=== PATIENT | male | born 1960 | race Caucasian/White ===

== ENCOUNTER 2019-06-07 23:34 | Observation (INO) | payer BC ==
--- NOTE | 2019-06-07 23:59 | ED ---
Chest Pain HPI - General Chief Complaint: Chest Pain Stated Complaint: Chest Pain Time Seen by Provider: 06/07/19 23:36 Source: patient, EMS Mode of arrival: EMS Limitations: no limitations - History of Present Illness Initial Comments: Patient is a 59-year-old male with history of diabetes presenting to the emergency department with a chief complaint of chest pain. Patient reports he was at work talking to another person when he developed sudden onset of left- sided chest pain that was squeezing in nature. Patient reports a sensation also went into the left shoulder upper arm and neck. He states there was also some numbness and tingling that radiated to the left upper extremity. Patient denies any episodes diaphoresis, nausea or vomiting. Patient denies previous cardiac history of has never had a heart evaluation. Patient reports hypertension and hypercholesterolemia which has not been treated for over a year. Patient also reports a diabetes has not been controlled for over a year. Patient reports a strong family history of early cardiac related . Currently patient reports the pain is a 1 and does not have any symptoms of numbness and tingling. Patient denies any shortness of breath or dyspnea on exertion. - Related Data Home Medications Medication Instructions Recorded Confirmed No Known Home Medications 06/07/19 06/07/19 Allergies Allergy/AdvReac Type Severity Reaction Status Date / Time No Known Allergies Allergy Verified 06/07/19 23:41 Review of Systems ROS Statement: Those systems with pertinent positive or pertinent negative responses have been documented in the HPI. ROS Other: All systems not noted in ROS Statement are negative. EKG Findings - EKG Comments: EKG Findings:: Sinus arrhythmia. Ventricular rate 85, MN interval 174, QRS duration 106, QT/QTc 376/447. Past Medical History Past Medical History: Diabetes Mellitus, Hyperlipidemia, Hypertension History of Any Multi-Drug Resistant Organisms: None Reported Past Surgical History: No Surgical Hx Reported Past Psychological History: No Psychological Hx Reported Smoking Status: Never smoker Past Alcohol Use History: Rare Past Drug Use History: None Reported General Exam Limitations: no limitations General appearance: alert, in no apparent distress, obese Head exam: Present: atraumatic, normocephalic, normal inspection Eye exam: Present: normal appearance Pupils: Present: normal accommodation ENT exam: Present: normal exam, normal oropharynx, mucous membranes moist Neck exam: Present: normal inspection, full ROM Respiratory exam: Present: normal lung sounds bilaterally. Absent: respiratory distress, wheezes, rales, chest wall tenderness Cardiovascular Exam: Present: regular rate, normal rhythm, normal heart sounds GI/Abdominal exam: Present: soft, normal bowel sounds. 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 Patient is presenting with typical chest pain and atypical features. No left-sided versus right sided weakness. Patient was given aspirin and nitro in the ambulance. At this time patient is completely asymptomatic. Patient isn't taking his diabetic, hypertensive or statins for over a year. On initial evaluation patient had elevated blood pressure which is gradually decreased. Chest x-ray is unremarkable. Initial troponin is negative. CBC and CMP unremarkable. EKG showing sinus arrhythmia with no ST changes. Patient has a heart score of 5. Patient will be admitted for observation. Case discussed with physician. Admitting physician is Dr. Fernandez. Cardiology consulted. Disposition Clinical Impression: Chest pain Disposition: ADMITTED IP TO THIS HOSP Condition: Stable Instructions (If sedation given, give patient instructions): Chest Pain (ED) Additional Instructions: Patient will be admitted Is patient prescribed a controlled substance at d/c from ED?: No Referrals: Mor Milan MD [Primary Care Provider] - 1-2 days Time of Disposition: 01:29
--- NOTE | 2019-06-08 00:18 | XR ---
EXAMINATION TYPE: XR chest 2V DATE OF EXAM: 06/08/2019 COMPARISON: NONE HISTORY: Chest pain TECHNIQUE: Frontal and lateral views of the chest are obtained. FINDINGS: Heart and mediastinum are normal. Lungs are clear. Diaphragm is normal. Bony thorax appear s normal. There are chest leads. IMPRESSION: Normal chest.
[2019-06-08 00:20] LABS: Basophils % (A) 0 %; Eosinophils # (A) 0.1 k/uL (0-0.7); Eosinophils % (A) 2 %; HCT 42.8 % (39.0-53.0); HGB 14.8 gm/dL (13.0-17.5); Lymphocytes # (A) 1.5 k/uL (1.0-4.8); Lymphocytes % (A) 20 %; MCHC 34.5 g/dL (31.0-37.0); MCV 84.1 fL (80.0-100.0); Mean Platelet Volume 5.9; Monocytes # (A) 0.4 k/uL (0-1.0); Monocytes % (A) 6 %; Neutrophils # (A) 5.1 k/uL (1.3-7.7); Neutrophils % (A) 70 %; Platelet Count 238 k/uL (150-450); RBC 5.09 m/uL (4.30-5.90); RDW 13.4 % (11.5-15.5); WBC 7.4 k/uL (3.8-10.6)
[2019-06-08 00:24] LABS: ALT 53 U/L (21-72); AST 41 U/L (17-59); African American GFR (CKD) >90 (>60 ml/min/1.73 sqM); Albumin 4.3 g/dL (3.5-5.0); Alkaline Phosphatase 62 U/L (38-126); Anion Gap 11 mmol/L; Blood Urea Nitrogen 19 mg/dL (9-20); Calcium 9.1 mg/dL (8.4-10.2); Carbon Dioxide 24 mmol/L (22-30); Chloride 106 mmol/L (98-107); Glucose 141 mg/dL (74-99); Non-African American GFR(CKD) >90 (>60 ml/min/1.73 sqM); Sodium 141 mmol/L (137-145); Total Bilirubin 0.7 mg/dL (0.2-1.3); Total Protein 7.3 g/dL (6.3-8.2)
[2019-06-08 00:28] LABS: Partial Thromboplastin Time 25.9 sec (22.0-30.0); Prothrombin Time 10.4 sec (9.0-12.0)
[2019-06-08] MEDS ORDERED: NITROGLYCERIN SL TABS 0.4 MG TAB SUBLINGUAL PRN (01:41)
[2019-06-08 06:44] LABS: Glucose,Whole Blood 89 mg/dL (75-99)
[2019-06-08] MEDS: INSULIN ASPART (NovoLOG) 100 UNIT/ML VIAL SQ SCH ×3 (08:04→20:05)
[2019-06-08] MEDS ORDERED: SODIUM CHLORIDE 0.9% 1,000 ML in EMPTY BAG 1 BAG IV ONE (08:36)
[2019-06-08] MEDS ORDERED: ALPRAZolam 0.5 MG TAB PO PRN (08:36)
[2019-06-08] MEDS ORDERED: ALPRAZolam 0.25 MG TAB PO PRN (08:36)
[2019-06-08] MEDS ORDERED: ENOXAPARIN 60 MG/0.6 ML SYRINGE SQ STA (08:37)
[2019-06-08] MEDS ORDERED: ASPIRIN 325 MG TAB PO STA (08:37)
[2019-06-08] MEDS: LOSARTAN 50 MG TAB PO SCH (08:44)
[2019-06-08] MEDS: METOPROLOL TARTRATE 25 MG TAB PO SCH ×2 (08:44→20:04)
[2019-06-08] MEDS: ASPIRIN 81 MG PO SCH (08:45)
[2019-06-08] MEDS ORDERED: ATORVASTATIN 40 MG TAB PO SCH (09:00)
[2019-06-08 09:02] LABS: Cholesterol 232 mg/dL (<200); HDL Cholesterol 40 mg/dL (40-60); LDL Cholesterol,Calculated 164 mg/dL (0-99); Triglycerides 138 mg/dL (<150)
--- NOTE | 2019-06-08 09:22 | P.CRDCN ---
History of Present Illness History of present illness: HISTORY OF PRESENTING ILLNESS This is a pleasant 59-year-old male past medical history significant for hypertension, dyslipidemia, diabetes mellitus and family history of premature coronary artery disease. However, he has not been compliant with his medications for the previous 1-yr. Currently takes no daily medications. He presented with chest pain. 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 We have been asked to see him in consultation for chest pain. He states yesterday while at work talking to a co-worker he had a sudden onset of chest pressure on the left side with radiation into the left shoulder, the base of the neck and down the left arm. He had no associated symptoms of shortness of breath, dizziness, nausea, vomiting, palpitations or diaphoresis but his co- worker did tell him he looked quite pale. The symptoms lasted for about 5 shanique lloyd and were not improving. EMS was called and by the time they arrived his pain had subsided. He has had no further symptoms of chest pain since admission. Seen and examined resting comfortably in no acute distress. He has never had a stress test or echocardiogram in the past. DIAGNOSTICS EKG reveals sinus mechanism with inferior Q-waves. Chest xray negative for an acute cardiopulmonary process. Laboratory reviewed, CBC unremarkable, sodium 141, potassium 4, creatinine 0.77, magnesium 2.0, cardiac enzymes negative 2, LDL 164, HDL 40 and total cholesterol 232. REVIEW OF SYSTEMS At the time of my exam: CONSTITUTIONAL: Denies fever or chills. CARDIOVASCULAR: Denies chest pain, shortness of breath, orthopnea, PND or palpitations. RESPIRATORY: Denies cough. GASTROINTESTINAL: Denies abdominal pain, diarrhea, constipation, nausea or vomiting. MUSCULOSKELETAL: Denies myalgias. NEUROLOGIC: Denies numbness, tingling or weakness. ENDOCRINE: Denies fatigue, weight change, polydipsia or polyurina. GENITOURINARY: Denies burning, hematuria or urgency with micturation. HEMATOLOGIC: Denies history of anemia or bleeding. PHYSICAL EXAMINATION Blood pressure 181/99 heart rate 66 afebrile and maintaining oxygen saturaiton on room air. CONSTITUTIONAL: No apparent distress. Obese. HEENT: Head is normocephalic. Pupils are equal, round. Sclerae anicteric. Mucous membranes of the mouth are moist. No JVD. No carotid bruit. CHEST EXAMINATION: Lungs are clear to auscultation. No chest wall tenderness is noted on palpation or with deep breathing. HEART EXAMINATION: Regular rate and rhythm. S1, S2 heard. No murmurs, gallops or rub. ABDOMEN: Soft, nontender. Positive bowel sounds. EXTREMITIES: 2+ peripheral pulses, no lower extremity edema and no calf tenderness. NEUROLOGIC EXAMINATION: Patient is awake, alert and oriented x3. ASSESSMENT Unstable angina Hypertensive urgency Diabetes mellitus Dyslipidemia Obesity, BMI 33 PLAN An acute event has been ruled out, however symptoms are quite concerning. Given his history and non-compliance we recommend proceeding with cardiac catheteri zation for definitive diagnosis. I have discussed the risks, benefits and alternative therapies for the above-mentioned procedure and for both sedation/analgesia as well as necessary blood product administration, if indicated, as they pertain to this patient. The patient has indicated understanding and acceptance of the risks and procedures discussed. Questions have been answered appropriately and he is agreeable to move forward with the above stated procedure. Initiate on atorvastatin, lopressor and losartan. Obtain 2D echocardiogram and doppler study to assess cardiac structure and function. Give one dose of lovenox 60 mg now. Request certified lactation educator to see him while he is here in the hospital and check hgb A1C. Further recommendations to follow based on clinical course. Thank you kindly for this consultation. Nurse Practitioner note has been reviewed, I agree with a documented findings and plan of care. Patient was seen and examined. Past Medical History Past Medical History: Diabetes Mellitus, Hyperlipidemia, Hypertension History of Any Multi-Drug Resistant Organisms: None Reported Past Surgical History: No Surgical Hx Reported Past Psychological History: No Psychological Hx Reported Smoking Status: Never smoker Past Alcohol Use History: Rare Past Drug Use History: None Reported Medications and Allergies Home Medications Medication Instructions Recorded Confirmed Type No Known Home Medications 06/07/19 06/08/19 History Allergies Allergy/AdvReac Type Severity Reaction Status Date / Time No Known Allergies Allergy Verified 06/08/19 07:48 Physical Exam Vitals: Vital Signs Temp Pulse Pulse Pulse Resp BP BP 06/08/19 07:59 06/08/19 07:08 98.2 F 66 18 181/99 06/08/19 02:45 71 16 164/91 06/08/19 02:39 98.2 F 82 18 190/119 06/08/19 02:25 76 16 06/08/19 02:00 77 19 159/97 06/08/19 01:00 73 20 160/101 06/08/19 00:09 71 06/08/19 00:00 77 13 167/104 06/07/19 23:36 98.9 F 87 18 195/118 Pulse Ox 06/08/19 07:59 96 06/08/19 07:08 95 06/08/19 02:45 06/08/19 02:39 97 06/08/19 02:25 06/08/19 02:00 94 L 06/08/19 01:00 94 L 06/08/19 00:09 06/08/19 00:00 96 06/07/19 23:36 96 Intake and Output 06/07/19 06/08/19 06/08/19 22:59 06:59 14:59 Intake Total 20 Balance 20 Intake: Amount of Fluid Infused ( 20 ml) Other: # Voids 1 Weight 108.862 kg Results 06/08/19 00:00 06/07/19 23:55 Cardiac Enzymes 06/07/19 06/07/19 06/08/19 Range/Units 23:55 23:55 05:37 AST 41 (17-59) U/L Troponin I <0.012 <0.012 (0.000-0.034) ng/mL Coagulation 06/07/19 Range/Units 23:55 PT 10.4 (9.0-12.0) sec APTT 25.9 (22.0-30.0) sec CBC 06/08/19 Range/Units 00:00 WBC 7.4 (3.8-10.6) k/uL RBC 5.09 (4.30-5.90) m/uL Hgb 14.8 (13.0-17.5) gm/dL Hct 42.8 (39.0-53.0) % Plt Count 238 (150-450) k/uL Comprehensive Metabolic Panel 06/07/19 Range/Units 23:55 Sodium 141 (137-145) mmol/L Potassium 4.0 (3.5-5.1) mmol/L Chloride 106 (98-107) mmol/L Carbon Dioxide 24 (22-30) mmol/L BUN 19 (9-20) mg/dL Creatinine 0.77 (0.66-1.25) mg/dL Glucose 141 H (74-99) mg/dL Calcium 9.1 (8.4-10.2) mg/dL AST 41 (17-59) U/L ALT 53 (21-72) U/L Alkaline Phosphatase 62 (38-126) U/L Total Protein 7.3 (6.3-8.2) g/dL Albumin 4.3 (3.5-5.0) g/dL Current Medications Generic Name Dose Route Start Last Admin Trade Name Freq PRN Reason Stop Dose Admin Aspirin 325 mg 06/09/19 09:00 Aspirin PO DAILY [facility] Insulin Aspart 0 unit 06/08/19 07:30 06/08/19 08:04 Novolog SQ Not Given ACHS [facility] Protocol Nitroglycerin 0.4 mg 06/08/19 01:41 Nitrostat SUBLINGUAL Q5M PRN Chest Pain Intake and Output 06/07/19 06/08/19 06/08/19 22:59 06:59 14:59 Intake Total 20 Balance 20 Intake: Amount of Fluid Infused ( 20 ml) Other: # Voids 1 Weight 108.862 kg 06/08/19 00:00 06/07/19 23:55
[2019-06-08] MEDS ORDERED: VERAPAMIL 2.5 MG/ML 2 ML AMP ONE (09:26)
[2019-06-08] MEDS ORDERED: LIDOCAINE 1% INJ 10MG/ML (20 ML MDV) ONE (09:26)
[2019-06-08] MEDS ORDERED: NITROGLYCERIN SL TABS 0.4 MG TAB SUBLINGUAL ONE ×2 (09:44→09:46)
[2019-06-08] MEDS ORDERED: IV FLUID CONTINUATION 1,000 ML IV ONE (09:45)
[2019-06-08] MEDS: MIDAZOLAM 2 MG/2 ML VIAL IV ONE ×2 (09:46→09:56)
[2019-06-08] MEDS ORDERED: LIDOCAINE 1% INJ 10MG/ML (20 ML MDV) SQ ONE (09:50)
[2019-06-08] MEDS: VERAPAMIL SYRINGE (5 MG/10 ML) INTRAARTER ONE ×2 (09:53→11:07)
[2019-06-08] MEDS: HEPARIN SODIUM 1,000 UN/ML (10ML VL) IV ONE ×3 (09:55→10:30)
[2019-06-08] MEDS ORDERED: HEPARIN SODIUM 1,000 UN/ML (10ML VL) ONE (10:01)
[2019-06-08] MEDS ORDERED: IOPAMIDOL-370 100ML BTL INJ ONE ×3 (10:03→11:04)
[2019-06-08] MEDS ORDERED: ADENOSINE 90 MG in SODIUM CHLORIDE 0.9% 60 ML IVP ONE (10:20)
[2019-06-08] MEDS ORDERED: TICAGRELOR 90 MG TAB ONE (10:23)
[2019-06-08] MEDS ORDERED: TICAGRELOR 90 MG TAB PO ONE (10:31)
[2019-06-08] MEDS: HYDROmorphone 1 MG/ML 1 ML SYRINGE IVP ONE ×2 (10:59→11:06)
[2019-06-08] MEDS ORDERED: NITROGLYCERIN 1000MCG/10ML SYRINGE INTRACORON ONE (11:01)
--- NOTE | 2019-06-08 12:00 | ECHOF ---
Referral Reason: MEASUREMENTS -------- HEIGHT: 180.3 cm WEIGHT: 108.9 kg BP: IVSd: 1.2 cm (0.6 - 1.1) LVIDd: 3.8 cm (3.9 - 5.3) LVPWd: 1.1 cm (0.6 - 1.1) IVSs: 1.6 cm LVIDs: 2.9 cm LVPWs: 1.8 cm LAESV Index (A-L): 22.24 ml/m Ao Diam: 3.1 cm (2.0 - 3.7) AV Cusp: 2.1 cm (1.5 - 2.6) LA Diam: 3.1 cm (2.7 - 3.8) MV EXCURSION: 14.924 mm (> 18.000) MV EF SLOPE: 46 mm/s (70 - 150) EPSS: 1.3 cm MV E Willie: 0.59 m/s MV DecT: 186 ms MV A Willie: 0.95 m/s MV E/A Ratio: 0.62 AR PHT: 523 ms RAP: 5.00 mmHg RVSP: 32.40 mmHg FINDINGS -------- Sinus rhythm. This was a technically difficult study with suboptimal views. The left ventricular size is normal. There is mild concentric left ventricular hypertrophy. Overa ll left ventricular systolic function is mildly impaired with, an EF between 45 - 50 %. Normal LAP Grade 1 Diastolic Dysfunction. Basal inferior LV wall motion is hypokinetic. Basal inferoseptal LV wall motion is hypokinetic. Mid inferior LV wall motion is hypokinetic. Mid inferoseptal LV wall motion is hypokinetic. The right ventricle is normal in size. The left atrial size is normal. Normal LA size by volume 22+/-6 ml/m2. The right atrial size is normal. Lumason used Interatrial and interventricular septum intact. The aortic valve is trileaflet and appears structurally normal. The mitral valve is normal. There is trace mitral regurgitation. The tricuspid valve appears structurally normal. Trace tricuspid regurgitation present. Right darin tricular systolic pressure is normal at < 35 mmHg. There is no pulmonic regurgitation present. The aortic root size is normal. IVC Not well visulized. There is no pericardial effusion. CONCLUSIONS -------- 1. Sinus rhythm. 2. This was a technically difficult study with suboptimal views. 3. The left ventricular size is normal. 4. There is mild concentric left ventricular hypertrophy. 5. Overall left ventricular systolic function is mildly impaired with, an EF between 45 - 50 %. 6. Normal LAP Grade 1 Diastolic Dysfunction. 7. Basal inferior LV wall motion is hypokinetic. 8. Basal inferoseptal LV wall motion is hypokinetic. 9. Mid inferior LV wall motion is hypokinetic. 10. Mid inferoseptal LV wall motion is hypokinetic. 11. The right ventricle is normal in size. 12. The left atrial size is normal. 13. Normal LA size by volume 22+/-6 ml/m2. 14. The right atrial size is normal. 15. Lumason used 16. Interatrial and interventricular septum intact. 17. The aortic valve is trileaflet and appears structurally normal. 18. The mitral valve is normal. 19. There is trace mitral regurgitation. 20. The tricuspid valve appears structurally normal. 21. Trace tricuspid regurgitation present. 22. Right ventricular systolic pressure is normal at < 35 mmHg. 23. There is no pulmonic regurgitation present. 24. The aortic root size is normal. 25. IVC Not well visulized. 26. There is no pericardial effusion. EDGE BANDING OFF BEARER: Priti Lozoya RDCS
[2019-06-08] MEDS: SODIUM CHLORIDE 0.9% 1,000 ML IV SCH (12:12)
[2019-06-08 12:23] LABS: Glucose,Whole Blood 127 mg/dL (75-99)
--- NOTE | 2019-06-08 13:10 | CC ---
CARDIAC CATHETERIZATION REPORT DATE OF SERVICE: 06/08/2019 PROCEDURE: 1. Left heart catheterization and coronary angiography. 2. Fractional flow reserve assessment of RCA and PDA branch of RCA. 3. PTCA and stenting of the PDA branch of RCA and mid RCA with 3 drug-eluting stents. PERFORMED BY: Dr. Manjinder Ortega. Moderate conscious sedation time was 81 minute. Patient was administered Versed. His oxygen saturation, hemodynamics, and EKG were monitored closely. He was also administered Dilaudid. CLINICAL INFORMATION: Mr. Armando Hawthorne is a patient who sees Dr. Milan from a primary care standpoint, but has not seen him for the last couple of years. He was told he had diabetes and hypertension, but he has not taken any medications. He was at work and developed chest pain yesterday, came to the hospital. Features of chest pain were suggestive angina, but troponins were negative. EKG revealed nonspecific ST and T-wave changes. Echocardiogram revealed inferior wall, inferoseptal and inferobasal hypokinesia with ejection fraction of nearly 45% to 50%. He was advised coronary angiography after due discussion. Risks, benefits, options were explained. PROCEDURE NOTE: Under local anesthesia and strict aseptic precautions, a 6-Yakut introducer was placed in the right radial artery. Using a JL3.5 and JR4 catheters, I performed coronary angiography and used the same right catheter to check the LV pressure but LV gram was not performed. I noted there was a moderate lesion in the mid RCA and also a significant lesion in the PDA branch of RCA. The left system was free of significant disease. Patient had somewhat of a codominant system, but the PDA branch came off from the RCA. Circumflex did not have significant disease. LAD distally had diffuse disease. He was advised FFR and PCI that was performed in the same setting. Following the completion of the procedure, a TR band was applied. Saturation in the fingers of the right hand was 92%. Good hemostasis was secured. CARDIAC CATHETERIZATION FINDINGS: The left ventricular end-diastolic pressure was about 8 to 10 mmHg without any gradient across aortic valve. CORONARY ANGIOGRAPHY FINDINGS: RIGHT CORONARY ARTERY: Technically a dominant vessel which has multiple areas of irregularities. The proximal portion of the RCA is free of significant disease. The midportion has an eccentric 55% to 60% lesion beyond which there are multiple areas of mild narrowing and then the PDA which comes off from this vessel has a focal area of about 70% stenosis. The PLV is a smaller branch. The RCA therefore has a moderate 55% mid lesion and a 70% PDA lesion. LEFT MAIN CORONARY ARTERY: Short patent disease-free vessel that bifurcates into LAD and circumflex. LEFT ANTERIOR DESCENDING CORONARY ARTERY: Fair caliber vessel, gives off septal and diagonal branches runs all the way to the apex and the distal fourth of this LAD is diffusely diseased and has a very small caliber and that runs towards the apex. The diagonal and septal branches are free of significant disease. LEFT POSTERIOR CIRCUMFLEX CORONARY ARTERY: Technically a codominant vessel, gives off obtuse marginal branches and distal posterolateral branch. There are minor irregularities but no significant disease is noted. FINAL IMPRESSION: This patient has a 55% to 60% mid RCA lesion and a 70% PDA lesion and PDA branch comes of the RCA. The LAD diffuse disease is noted distally. Circumflex is free of significant disease. Filling pressures are acceptable. No gradient across aortic valve. RECOMMENDATIONS: I recommended FFR and intervention of the RCA if positive and proceeded to perform this in the same setting. INTERVENTION PROCEDURE DETAILS: I used a standard right Gregor guide catheter and a Verrata wire, with this wire I obtained the IFR and FFR with adenosine infusion. FFR was 0.69 and IFR was 0.89. This was abnormal. Therefore I proceeded to perform intervention. Using the same Verrata wire, I advanced a 2.0 caliber [place] stent and deployed this in the PDA branch. I gave additional heparin and patient received a total of 7500 of heparin and ACT was over 400. A repeat ACT was 368. He also received Brilinta 180 mg orally. The Verrata wire was kept distally. With the same wire I advanced an [place] balloon of 8 mm length and 2.0 caliber and deployed this at 14 atmospheres. I noted that there was some amount of incomplete expansion of the stent. I debated between using a 2.5 caliber 8 mm NC Trek or deploying another stent slightly proximal to it as well. I therefore took a 2.5 caliber 8 mm stent and this stent was deployed at 14 atmospheres with excellent expansion and excellent angiographic result. So in the PDA branch, he has 2 stents and there is a significant overlap of the stents with a small area of proximal extension. However, my initial intention was to use an NC Trek balloon to post dilate, but I ended up doing a stent for this lesion. I explained this to the patient. Excellent angiographic result was achieved. I then turned my attention to the proximal lesion. Using the same balloon I dilated the proximal lesion as a predilatation and then I had difficulty with the Verrata wire and I could not advance the 3.25 caliber stent over the wire. Therefore I took this wire out and used a new run-through wire. Over the run-through wire I advanced a 3.25 caliber 12 mm long Xience stent and deployed this at 12 atmospheres. The stent did not expand. In fact, there was possibly a balloon rupture of the stent spontaneously must have been a manufacturing defect and the stent remained under expand. The patient had chest pain and ST elevation both in the inferior as well as in the precordial leads. I immediately took the stent balloon out and advanced a 3.25 caliber 12 mm NC Trek balloon and positioned it exactly within the stent and expanded this up to 13 atmospheres. Patient had chest pain and EKG changes persisted, but eventually excellent angiographic result was achieved and there was complete resolution of chest pain and EKG changes. The stent was fully expanded. I obtained multiple angiograms in various projections. The patient had complete relief of his symptoms and total resolution of ST-segment changes. The ACT was then rechecked and it was about 368. Patient also received 180 mg of Brilinta. Excellent angiographic result was achieved with the 2 stents in the PDA and 1 stent in the RCA branch. The sheath was then taken out and TR band applied as per protocol with saturation of more than 92% in the fingers of the right hand. Results were discussed with the patient. Images were reviewed with the patient, but there was no family members available. This note will go to Dr. Milan patient's primary care physician. Excellent angiographic result without complication was achieved. Patient will be on dual antiplatelet therapy, statins, angiotensin receptor blockers and beta blockers. Medication compliance was advised. MMODL / IJN: [id number] /
[2019-06-08 15:22] VITALS: RESP 16
[2019-06-08 16:57] LABS: Glucose,Whole Blood 84 mg/dL (75-99)
[2019-06-08 18:57] LABS: Hemoglobin A1C 6.1 % (4.0-6.0)
[2019-06-08 20:00] LABS: Glucose,Whole Blood 121 mg/dL (75-99)
[2019-06-08] MEDS: TICAGRELOR 90 MG TAB PO SCH (20:04)
--- NOTE | 2019-06-08 20:54 | P.HPIM ---
History of Present Illness H&P Date: 06/08/19 Chief Complaint: Chest pain History of presenting complaint: This is a very pleasant 59-year-old patient of Dr. Milan. Chronic stable medical conditions include diabetes, hypertension, hyperlipidemia. Yesterday afternoon patient was at work talking to his colleague. Started with left-sided chest pressure, radiated to his left arm left arm became numb and tingling. Also went across the chest. Patient feels slightly dizzy and felt oral sores. No obvious perspiration. Patient was told that he was looking pale. Colleague told to call the ambulance. Symptoms lasted for about 10-15 minutes and symptoms were starting to get better by the time the ambulance arrived. Patient's troponin was negative. Patient was taken to the cardiac wood preserving plant laborer only today and intervention with stenting was carried out. Currently patient is chest pain-free sitting up out of bed. at the bedside. Review of systems: GEN.: None EYES: None HEENT: None NECK: None RESPIRATORY: None CARDIOVASCULAR: As above GASTROINTESTINAL: None GENITOURINARY: None MUSCULOSKELETAL: None LYMPHATICS: None HEMATOLOGICAL: None PSYCHIATRY: None NEUROLOGICAL: None Past medical history to include: Diabetes mellitus type 2, hypertension, hyperlipidemia Social history: Does not smoke. Alcohol rarely. 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 Family history: Reviewed, noncontributory to presentation Physical examination: VITAL SIGNS: 98.9, 87, 18, 195/118 , 96% room air upon presentation GENERAL: BMI 33.5, sitting on bed slightly anxious. EYES: Pupils equal. Conjunctiva normal. HEENT: External appearance of nose and ears normal, oral cavity grossly normal. NECK: JVD not raised; masses not palpable. HEART: First and second heart sounds are normal; no edema. LUNGS: Respiratory rate normal; clear to auscultation. ABDOMEN: Soft, nontender, liver spleen not palpable, no masses palpable. PSYCH: Alert and oriented x3; mood and affect normal. NEUROLOGICAL: Cranial nerves grossly intact; no facial asymmetry, power and sensation grossly intact. LYMPHATICS: No lymph nodes palpable in the axilla and neck INVESTIGATIONS, reviewed in the clinical context: White count 7.4 hemoglobin 14.8 potassium 4 crit 0.77 Troponin I 2 negative LDL 164 EKG tracing personally reviewed by me-normal sinus rhythm Chest x-ray film personally reviewed by me-no obvious infiltrate 2-D echo-year 45-50% basal inferior wall hypokinetic and adjoining was hypokinetic Assessment: -Unstable angina in a patient with risk factors including diabetes hypertension hyperlipidemia -Obesity BMI 33.5 -Diabetes mellitus type 2 on oral hypoglycemic -Hypertensive urgency on presentation -Hyperlipidemia uncontrolled - Plan: Patient had 2 stents in the PDA and 1 stent in the RCA blockage. Other medications include Norvasc 5 mg aspirin and Lipitor Cozaar Lopressor and Brilinta. Care was discussed in length with the patient the bedside. Questions were answered. Encouraged to ambulate as tolerated. - Past Medical History Past Medical History: Diabetes Mellitus, Hyperlipidemia, Hypertension History of Any Multi-Drug Resistant Organisms: None Reported Past Surgical History: No Surgical Hx Reported Past Psychological History: No Psychological Hx Reported Smoking Status: Never smoker Past Alcohol Use History: Rare Past Drug Use History: None Reported Medications and Allergies Home Medications Medication Instructions Recorded Confirmed Type Ticagrelor [Brilinta] 90 mg PO BID #180 tab 06/08/19 Rx Allergies Allergy/AdvReac Type Severity Reaction Status Date / Time No Known Allergies Allergy Verified 06/08/19 07:48 Physical Exam Vitals: Vital Signs Temp Pulse Pulse Pulse Resp BP BP 06/08/19 07:59 06/08/19 07:08 98.2 F 66 18 181/99 06/08/19 02:45 71 16 164/91 06/08/19 02:39 98.2 F 82 18 190/119 06/08/19 02:25 76 16 06/08/19 02:00 77 19 159/97 06/08/19 01:00 73 20 160/101 06/08/19 00:09 71 06/08/19 00:00 77 13 167/104 06/07/19 23:36 98.9 F 87 18 195/118 Pulse Ox 06/08/19 07:59 96 06/08/19 07:08 95 06/08/19 02:45 06/08/19 02:39 97 06/08/19 02:25 06/08/19 02:00 94 L 06/08/19 01:00 94 L 06/08/19 00:09 06/08/19 00:00 96 06/07/19 23:36 96 Intake and Output 06/07/19 06/08/19 06/08/19 22:59 06:59 14:59 Intake Total 20 13.25 Balance 20 13.25 Intake: IV 13.25 Amount of Fluid Infused ( 20 ml) Other: # Voids 1 Weight 108.862 kg Results CBC & Chem 7: 06/08/19 00:00 06/07/19 23:55 Labs: Abnormal Lab Results - Last 24 Hours (Table) 06/07/19 06/08/19 Range/Units 23:55 05:37 Glucose 141 H (74-99) mg/dL Cholesterol 232 H (<200) mg/dL LDL Cholesterol, Calc 164 H (0-99) mg/dL Thrombosis Risk Factor Assmnt - Choose All That Apply Each Factor Represents 1 point: Age 41-60 years Other Risk Factors: No Other congenital or acquired thrombophilia - If yes, enter type in comment: No Thrombosis Risk Factor Assessment Total Risk Factor Score: 1 Thrombosis Risk Factor Assessment Level: Low Risk
[2019-06-08] MEDS ORDERED: amLODIPine 5 MG TAB PO SCH (21:00)
[2019-06-09] MEDS: SODIUM CHLORIDE 0.9% 1,000 ML IV SCH (03:56)
[2019-06-09 06:02] LABS: Basophils # (A) 0.1 k/uL (0-0.2); Basophils % (A) 1 %; Eosinophils # (A) 0.3 k/uL (0-0.7); Eosinophils % (A) 3 %; HCT 45.5 % (39.0-53.0); Lymphocytes # (A) 1.5 k/uL (1.0-4.8); Lymphocytes % (A) 20 %; MCH 28.3 pg (25.0-35.0); MCHC 32.9 g/dL (31.0-37.0); MCV 85.9 fL (80.0-100.0); Mean Platelet Volume 6.3; Monocytes # (A) 0.5 k/uL (0-1.0); Monocytes % (A) 7 %; Neutrophils # (A) 5.1 k/uL (1.3-7.7); Neutrophils % (A) 67 %; Platelet Count 214 k/uL (150-450); RDW 13.6 % (11.5-15.5); WBC 7.6 k/uL (3.8-10.6)
[2019-06-09 06:08] LABS: Glucose,Whole Blood 126 mg/dL (75-99)
[2019-06-09 06:09] LABS: African American GFR (CKD) >90 (>60 ml/min/1.73 sqM); Anion Gap 7 mmol/L; Blood Urea Nitrogen 13 mg/dL (9-20); Calcium 8.6 mg/dL (8.4-10.2); Carbon Dioxide 27 mmol/L (22-30); Chloride 105 mmol/L (98-107); Glucose 108 mg/dL (74-99); Non-African American GFR(CKD) >90 (>60 ml/min/1.73 sqM); Potassium 3.8 mmol/L (3.5-5.1); Sodium 139 mmol/L (137-145)
[2019-06-09] MEDS: INSULIN ASPART (NovoLOG) 100 UNIT/ML VIAL SQ SCH ×2 (06:34→14:07)
[2019-06-09] MEDS: METOPROLOL TARTRATE 25 MG TAB PO SCH (08:35)
[2019-06-09] MEDS: LOSARTAN 50 MG TAB PO SCH (08:35)
[2019-06-09] MEDS: ASPIRIN 81 MG PO SCH (08:35)
[2019-06-09] MEDS: TICAGRELOR 90 MG TAB PO SCH (08:38)
[2019-06-09] MEDS ORDERED: ATORVASTATIN 80 MG TAB PO SCH (09:00)
[2019-06-09] MEDS ORDERED: ASPIRIN 325 MG TAB PO SCH (09:00)
[2019-06-09] MEDS ORDERED: POTASSIUM CHLORIDE ER 20 MEQ TAB.ER PO STA (09:24)
--- NOTE | 2019-06-09 10:32 | PN ---
PROGRESS NOTE Mr. Hawthorne was seen by me yesterday with unstable angina, underwent stenting of complex lesions involving the RCA and PDA branch of RCA with a good result. This morning he is asymptomatic, had a comfortable night. Labs are good. Potassium is 3.8. Blood pressure is slightly elevated. EKG is unremarkable. Vital signs are stable with a blood pressure of 160/84, pulse rate is about 70 per minute. No JVD or carotid bruit. S1, S2 heard normally. Lungs are clear. Abdomen and lower extremity exam unchanged. Right radial cath site is clean and dry with a good pulse. EKG is unremarkable. I am recommending that he can be discharged today on current medical regimen. Blood pressure is slightly elevated, but we will recheck the pressure and give him his amlodipine 5 mg. The patient was not on any medications when I saw him yesterday. He will go home on dual antiplatelet therapy and I will see him in the office on at 9 a.m. Discharge instructions regarding activity, diet and medications were given. MMODL / IJN: [id number] /
[2019-06-09] MEDS ORDERED: amLODIPine 5 MG TAB PO SCH (11:30)
[2019-06-09 12:13] VITALS: BP 163/90; PULSE 66; TEMP 98.3
[2019-06-09 12:29] LABS: Glucose,Whole Blood 90 mg/dL (75-99)
[2019-06-10] MEDS ORDERED: LOSARTAN 50 MG TAB PO SCH (09:00)
--- NOTE | 2019-06-12 15:23 | P.DS ---
Providers Date of admission: 06/08/19 01:42 Expected date of discharge: 06/09/19 Attending physician: Dangelo Fernandez Consults: 06/08/19 01:41 Consult Physician Urgent Consulting Provider: [facility] Consult Reason/Comments: chest pain, HTN Do you want consulting provider notified?: Yes, Notify in am Primary care physician: Mor Milan [facility] Course: Chief Complaint: Chest pain History of presenting complaint: This is a very pleasant 59-year-old patient of Dr. Milan. Chronic stable medical conditions include diabetes, hypertension, hyperlipidemia. Yesterday afternoon patient was at work talking to his colleague. Started with left-sided chest pressure, radiated to his left arm left arm became numb and tingling. Also went across the chest. Patient feels slightly dizzy and felt oral sores. No obvious perspiration. Patient was told that he was looking pale. Colleague told to call the ambulance. Symptoms lasted for about 10-15 minutes and symptoms were starting to get better by the time the ambulance arrived. Patient's troponin was negative. Patient was taken to the cardiac prosthetic lab technician and intervention with stenting was carried out. Today-no further cardiac symptoms. Up and about. Doing well. Consultation: Dr. SHELL Ortega from cardiology Physical examination: VITAL SIGNS: 98.4, 77, 16, 168/92, 97% room air GENERAL: BMI 33.5, sitting up, comfortable EYES: Pupils equal. Conjunctiva normal. HEENT: External appearance of nose and ears normal, oral cavity grossly normal. NECK: JVD not raised; masses not palpable. HEART: First and second heart sounds are normal; no edema. LUNGS: Respiratory rate normal; clear to auscultation. ABDOMEN: Soft, nontender, liver spleen not palpable, no masses palpable. PSYCH: Alert and oriented x3; mood and affect normal. INVESTIGATIONS, reviewed in the clinical context: White count 7.4 hemoglobin 14.8 potassium 4 crit 0.77 Troponin I 2 negative LDL 164 EKG tracing personally reviewed by me-normal sinus rhythm Chest x-ray film personally reviewed by me-no obvious infiltrate 2-D echo-year 45-50% basal inferior wall hypokinetic and adjoining was hypokinetic Assessment: -Unstable angina in a patient with risk factors including diabetes hypertension hyperlipidemia -Coronary artery disease with stent to PDA branch of the RCA and mid RCA with 3 drug-eluting stents. -Obesity BMI 33.5 -Diabetes mellitus type 2 on oral hypoglycemic -Hypertensive urgency on presentation -Hyperlipidemia uncontrolled Disposition: Home - Patient Condition at Discharge: Stable Plan - Discharge Summary Discharge Rx Participant: No New Discharge Prescriptions: New Ticagrelor [Brilinta] 90 mg PO BID #180 tab Aspirin 81 mg PO DAILY chew Losartan [Cozaar] 100 mg PO DAILY #180 tab Atorvastatin [Lipitor] 80 mg PO DAILY #90 tab Metoprolol Tartrate [Lopressor] 25 mg PO BID #180 tab Nitroglycerin Sl Tabs [Nitrostat] 0.4 mg SUBLINGUAL Q5M PRN #1 bottle PRN Reason: Chest Pain amLODIPine [Norvasc] 10 mg PO HS #30 tablet Discharge Medication List Ticagrelor [Brilinta] 90 mg PO BID #180 tab 06/08/19 [Rx] Aspirin 81 mg PO DAILY chew 06/09/19 [Rx] Atorvastatin [Lipitor] 80 mg PO DAILY #90 tab 06/09/19 [Rx] Losartan [Cozaar] 100 mg PO DAILY #180 tab 06/09/19 [Rx] Metoprolol Tartrate [Lopressor] 25 mg PO BID #180 tab 06/09/19 [Rx] Nitroglycerin Sl Tabs [Nitrostat] 0.4 mg SUBLINGUAL Q5M PRN #1 bottle 06/09/19 [Rx] amLODIPine [Norvasc] 10 mg PO HS #30 tablet 06/09/19 [Rx] Follow up Appointment(s)/Referral(s): Graham Ortega MD [STAFF PHYSICIAN] - 06/13/19 9:00 am (Please bring your photo ID, your insurance card and a list of all your medications to follow up appointment. ) Mor Milan MD [Primary Care Provider] - 06/14/19 10:00 am Patient Instructions/Handouts: Heart Healthy Diet (DC), Coronary Intravascular Stent Placement (DC) Activity/Diet/Wound Care/Special Instructions: CARDIAC CATH 1. Support your puncture site by applying firm, steady pressure whenever you cough, laugh, sneeze or bear down to have a bowel movement (2-day restriction). 2. Watch for any excessive bruising, active bleeding, a firm knot forming under your skin, extreme tenderness and signs of infection (redness, swelling, fever). 3. Shower daily, do not soak puncture in a tub bath, jacuzzi, pool, padron etc. for 1 week. This is to prevent risk of infection. 4. Drink plenty of fluids the day of and day after your procedure to flush contrast dye out of your kidneys. 5. Take all medications as directed. Never stop any new medication without your physicians OK. 6. No driving for 2 days after procedure. 7. 10- pound weight lifting restriction for 1 week. 8. Low sodium/low fat diet. 9. Activity limited until follow up appointment with your cheese packer. In case of any problems, please call [facility] [place] @ [phone]. Discharge Disposition: HOME SELF-CARE
== END 2019-06-09 15:13 | disposition home or self-care (01) ==
LOC: EC 23:34 → 1SOBS 06-08 01:42 → 3SCARD 06-08 15:30
PROVIDERS: ADMIT Hospitalist; ATTEND Hospitalist
DX: I25.110 Atherosclerotic heart disease of native coronary artery with unstable angina pectoris (principal); E11.9 Type 2 diabetes mellitus without complications; I16.0 Hypertensive urgency; I10 Essential (primary) hypertension; E78.00 Pure hypercholesterolemia, unspecified; E78.5 Hyperlipidemia, unspecified; E66.9 Obesity, unspecified; Z68.33 Body mass index [BMI] 33.0-33.9, adult; T38.3X6A Underdosing of insulin and oral hypoglycemic [antidiabetic] drugs, initial encounter; T46.5X6A Underdosing of other antihypertensive drugs, initial encounter; T46.6X6A Underdosing of antihyperlipidemic and antiarteriosclerotic drugs, initial encounter; I49.9 Cardiac arrhythmia, unspecified; K13.79 Other lesions of oral mucosa; Z82.49 Family history of ischemic heart disease and other diseases of the circulatory system; Z91.14 Patient's other noncompliance with medication regimen; R20.0 Anesthesia of skin; R20.2 Paresthesia of skin
CPT/HCPCS: 96372; 93005 ×2; 99285; 36415; 94760; 93306; 93571; 93572; 93458; 85347; 80061; 80053; 80048; 83735; 84484; 85025 ×2; 85610; 85730; 83036; 71046; G0378 ×3; C9600; C9601; C1887; C1725 ×2; C1769 ×2; C1874 ×2; C1894; J2250; J2001; J1650; J1644; J1170; J0153; Q9950; Q9967